=== PATIENT | female | born 1985 | race American Indian/Alaskan Native ===

== ENCOUNTER 2016-08-15 16:13 | Emergency (ER) | payer BC ==
[2016-08-15 16:50] VITALS: BMI 41.1
[2016-08-15 16:54] VITALS: BP 118/82; PULSE 83; RESP 19; TEMP 99.1; O2SAT 99
[2016-08-15] MEDS ORDERED: PrednisoLONE 1% Opht Susp(5 ml) OU STA (17:24)
--- NOTE | 2016-08-15 17:50 | ED PDOC ---
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 Patient states that she is here visiting from [place] and forgot her eyedrops of prednisolone, which she administers 1 drop to each eye twice a day, every day for her chronic iritis which she was diagnosed with an 2012 after having cataract surgery to both eyes. Patient states that she sees the [facility] in [facility] and she has a scheduled appointment with her email specialist as soon as she returns home in 3 days. Otherwise patient denies any trauma, headache, fever, discharge to both eyes, foreign body sensation to both eyes, photophobia. She has no other complaints. (Gaurav OSUNA,Kathie Madsen) Past Medical History - Provider Review Nursing Documentation Reviewed: Yes - Infectious Disease Hx of Infectious Diseases: None - Cardiac Hx Cardiac Disorders: No - Pulmonary Hx Respiratory Disorders: No - Neurological Hx Neurological Disorder: No - HEENT Hx HEENT Disorder: Yes Other/Comment: iritis - Renal Hx Renal Disorder: No - Endocrine/Metabolic Hx Endocrine Disorders: No - Hematological/Oncological Hx Blood Disorders: No - Integumentary Hx Dermatological Disorder: No - Musculoskeletal/Rheumatological Hx Musculoskeletal Disorders: No - Gastrointestinal Hx Gastrointestinal Disorders: No - Genitourinary/Gynecological Hx Genitourinary Disorders: No - Psychiatric Hx Psychophysiologic Disorder: No Hx Substance Use: No - Surgical History Hx Cataract Extraction: Yes (b/l) - Anesthesia Hx Anesthesia: Yes Hx Anesthesia Reactions: No Family/Social History - Physician Review Nursing Documentation Reviewed: Yes Family/Social History: No Known Family HX Smoking Status: Never Smoked Hx Alcohol Use: No Hx Substance Use: No Allergies/Home Meds Allergies/Adverse Reactions: Allergies No Known Allergies Allergy (Verified 08/15/16 16:50) Home Medications: Home Meds Medication Instructions Recorded Confirmed predniSONE [predniSONE Tab] 1 mg PO DAILY 08/15/16 08/15/16 Review of Systems - Review of Systems Constitutional: Normal. absent: Fatigue, Weight Change, Fevers Eyes: Normal, Vision Changes (cloudiness to R eye), Eye Pain ENT: Normal. absent: Sore Throat, Rhinorrhea, Sinus Congestion Skin: Normal. absent: Rash, Pruritis, Skin Lesions Physical Exam Vital Signs Reviewed: Yes Temperature: Afebrile Blood Pressure: Normal Pulse: Regular Respiratory Rate: Normal Appearance: Positive for: Well-Appearing, Non-Toxic, Comfortable Pain Distress: None Mental Status: Positive for: Alert and Oriented X 3 - Systems Exam Head: Present: Atraumatic, Normocephalic Pupils: Present: Non-Reactive, Other (+surgical implant lens noted to both pupils) Extroacular Muscles: Present: EOMI Conjunctiva: Present: Injected (mildly injected) Ears: Present: Normal, NORMAL TM Mouth: Present: Moist Mucous Membranes Nose (Internal): Present: Normal Inspection Neck: Present: Normal Range of Motion. No: MIDLINE TENDERNESS Neurological: Present: GCS=15, CN II-XII Intact Skin: Present: Warm, Dry, Normal Color. No: Rashes Vital Signs Temp Pulse Resp BP Pulse Ox 08/15/16 16:53 99.1 F 83 19 118/82 99 Medical Decision Making ED Course and Treatment: I was available for consultation during PA evaluation. The chart was reviewed by me, and I agree with disposition. The documented history was done by the physician senior financial reporting accountant. The documented physical exam was done by the physician senior financial reporting accountant. The documented procedures were done by the physician senior financial reporting accountant. 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 Prednisolone 1 gtt to both eyes administered. Bottle of prednisolone provided to the patient and was advised to continut the eye drops as directed by her email specialist. Advised to see her eye doctor as scheduled or to see her eye doctor sooner if her symptoms continue or become worse. Also advised to go to the nearest emergency room if she develops any new or worsening symptoms Patient states she fully agrees with and understands discharge instructions. States that she agrees with the plan and disposition. Verbalized and repeated discharge instructions and plan. I have given the patient opportunity to ask any additional questions. (Gaurav OSUNA,Kathie Madsen) - Medication Orders Current Medication Orders: Discontinued Medications Prednisolone Acetate (Pred Forte 1% Opht Susp) 0 ml OU STAT STA Stop: 08/15/16 17:25 Last Admin: 08/15/16 17:43 Dose: 1 drop - PA / DEVICE TEST ENGINEER / Resident Statement / has reviewed & agrees with the documentation as recorded. Disposition/Present on Arrival - Present on Arrival Any Indicators Present on Arrival: No History of DVT/PE: No History of Uncontrolled Diabetes: No Urinary Catheter: No History of Decub. Ulcer: No History Surgical Site Infection Following: None - Disposition Have Diagnosis and Disposition been Completed?: Yes Disposition Time: 17:00 Patient Plan: Discharge - Disposition Diagnosis: Chronic iritis of both eyes Disposition: HOME/ ROUTINE Condition: STABLE Discharge Instructions (ExitCare): Iritis (ED) Print Language: POLISH Additional Instructions: Continue prednisolone as instructed by your eye doctor and make sure you follow up with your email specialist as scheduled. Go to the nearest ER at any time for any new or worsening symptoms. Referrals: Olinda Herrera, [Primary Care Provider] - Follow up with primary
== END 2016-08-15 17:54 | disposition home or self-care (01) ==
LOC: ED 16:13
DX: H20.13 Chronic iridocyclitis, bilateral (principal)